=== PATIENT | male | born 1995 | race Caucasian/White ===

== ENCOUNTER 2023-11-17 15:03 | Emergency (ER) | payer MEDICAID ==
[~2023-11-17] VITALS: Ht 182.9 cm; Wt 85.7 kg
[2023-11-17 15:30] VITALS: BP 146/95; TEMP 98.1
[2023-11-17] MEDS ORDERED: LIDOCAINE 2% 50 ML MDV IJ ONE (16:32)
[2023-11-17] MEDS ORDERED: BACI30OI9 TP (18:03)
[2023-11-17 18:25] VITALS: O2SAT 99
== END 2023-11-17 18:35 | disposition home or self-care (01) ==
LOC: ER 15:08
DX: L03.032 Cellulitis of left toe (principal); B96.89 Other specified bacterial agents as the cause of diseases classified elsewhere
CPT/HCPCS: 10060; 99282; J3490

== ENCOUNTER 2024-10-18 12:28 | Emergency (ER) | payer MEDICAID ==
[~2024-10-18] VITALS: Ht 170.2 cm; Wt 77.1 kg
[~2024-10-18 12:28] MED LIST: BACI30OI9 TP
[2024-10-18] MEDS ORDERED: CEPH-570 PO (13:20)
[2024-10-18 13:51] VITALS: BP 142/83; TEMP 98.6; O2SAT 98
[2024-10-18 14:05] LABS: APPEARANCE,URINE CLEAR (CLEAR); BILIRUBIN,URINE NEGATIVE (NEGATIVE); BLOOD, URINE NEGATIVE Ery/uL (NEGATIVE); COLOR,URINE YELLOW (YELLOW); KETONES,URINE NEGATIVE (NEGATIVE); LEUKOCYTE ESTERASE ,URINE NEGATIVE (NEGATIVE); NITRITE, URINE NEGATIVE (NEGATIVE); PROTEIN,URINE NEGATIVE (NEGATIVE); UGLUCOSE NEGATIVE (NEGATIVE)
[2024-10-18 14:11] LABS: ADD URINE CULTURE NO; BACTERIA,URINE Rare /HPF (None Seen); SQUAMOUS EPITHELIAL CELL,UR 0-2 /HPF (None Seen)
== END 2024-10-18 13:52 | disposition home or self-care (01) ==
LOC: ER 12:42
DX: R31.9 Hematuria, unspecified (principal)
CPT/HCPCS: 81001